=== PATIENT | female | born 1990 ===

== ENCOUNTER 2019-07-07 19:34 | Emergency (ER) | payer BC ==
[~2019-07-07] VITALS: Ht 160 cm; Wt 47.7 kg
[2019-07-07 19:38] VITALS: BP 139/85
[2019-07-07] MEDS ORDERED: SULF1TAB49 PO (20:27)
== END 2019-07-07 20:33 | disposition home or self-care (01) ==
LOC: ER 19:35
DX: L02.01 Cutaneous abscess of face (principal); R21 Rash and other nonspecific skin eruption; Z79.2 Long term (current) use of antibiotics
CPT/HCPCS: 99283